=== PATIENT | female | born 1935 | race Caucasian/White ===

== ENCOUNTER → 2022-11-07 14:45 | Outpatient (BNVA) | payer MEDICARE, SELFPAY | PROVIDERS: Visit Provider Podiatrist Foot & Ankle Surgery | DX: M77.41 Metatarsalgia, right foot (principal); M20.11 Hallux valgus (acquired), right foot; M24.571 Contracture, right ankle | CPT/HCPCS: 73630; 99204 ==

== ENCOUNTER → 2022-11-30 13:32 | Outpatient (BNVA) | payer MEDICARE, SELFPAY | PROVIDERS: Visit Provider Nurse Practitioner Family | DX: M17.0 Bilateral primary osteoarthritis of knee (principal); Z46.89 Encounter for fitting and adjustment of other specified devices | CPT/HCPCS: 73560; 73565; 97760; 99203; L1812 ==

== ENCOUNTER 2022-11-30 15:16 | Outpatient (CLI) | payer MEDICARE, BC, SELFPAY | END 2022-11-30 15:17 | disposition home or self-care (01) | LOC: SPT 15:17 | PROVIDERS: Visit Provider Nurse Practitioner Family | DX: Z46.89 Encounter for fitting and adjustment of other specified devices (principal); M25.562 Pain in left knee; M17.0 Bilateral primary osteoarthritis of knee | CPT/HCPCS: 97760; 99203; L1812 ==

== ENCOUNTER → 2024-12-13 11:06 | Outpatient (BNVA) | payer MEDICARE, SELFPAY | PROVIDERS: Visit Provider Dermatology | DX: R59.0 Localized enlarged lymph nodes (principal); L82.1 Other seborrheic keratosis; D48.5 Neoplasm of uncertain behavior of skin | CPT/HCPCS: 11102; 99204 ==

== ENCOUNTER 2025-01-03 09:33 | Outpatient (CLI) | payer MEDICARE, SELFPAY ==
--- NOTE | 2025-01-03 09:41 | CTR_ITS ---
PROCEDURE INFORMATION: Exam: CT Neck With Contrast Exam date and time: 01/03/2025 10:51 AM Age: 89 years old Clinical indication: Condition or disease; Left mandible area mass, squamous cell carcinoma x 1 month TECHNIQUE: Imaging protocol: Computed tomography of the neck with contrast. Radiation optimization: All CT scans at this facility use at least one of these dose optimization techniques: automated exposure control; mA and/or kV adjustment per patient size (includes targeted exams where dose is matched to clinical indication); or iterative reconstruction. Contrast material: OMNI 350; Contrast volume: 100 ml; Contrast route: INTRAVENOUS (IV); COMPARISON: No relevant prior studies available. RADIATION DOSE METRICS: Total DLP (mGy-cm): 228.68 FINDINGS: Salivary glands: Parotid and submandibular salivary glands appear unremarkable. Teeth: Dental hardware is seen with secondary streak artifact. Pharynx: Parapharyngeal soft tissues appear unremarkable. No significant tonsillar enlargement/abscess. Larynx: Paralaryngeal soft tissues appear unremarkable. Normal epiglottis. Thyroid: Small subcentimeter hypodense nodule right lobe thyroid gland noted is incidentally. Trachea: Visualized trachea is unremarkable. Lungs: Unremarkable as visualized. Lymph nodes: Small nonspecific cervical lymph nodes suggested, without significant lymph node enlargement to indicate significant lymphadenopathy. Vasculature: Mild carotid vascular calcification at the carotid bulb/bifurcation. Bones/joints: Spondylotic or degenerative change cervical spine most severe C5-C6 level. No fracture or acute osseous abnormality. No bone lesion or destruction, particularly underlying left mandible. Soft tissues: A protruding soft tissue mass is seen about the soft tissues of the anterolateral left facial region adjacent to the left mandible. This measures approximately 3 x 2.5 x 2 cm in size. Some associated areas of small air density are seen toward the more superficial portion of the mass. This may be related to postsurgical change or post biopsy appearance and correlate clinically. This appears to involve superficial and deep subcutaneous soft tissues as well as skin surface. CT/CT neck w con* [id number] IMPRESSION: 1. A protruding soft tissue mass is seen about the soft tissues of the anterolateral left facial region adjacent to the left mandible involving superficial and deep subcutaneous soft tissues and skin. This measures approximately 3 x 2.5 x 2 cm. This is felt to correlate with the patient's known history of squamous cell carcinoma. Some associated areas of small air density are seen more superficially within the soft tissue mass, likely postsurgical change or post biopsy appearance, for clinical correlation. 2. No underlying osseous abnormality of the mandible and no significant cervical lymphadenopathy. 3. Incidental small subcentimeter hypodense nodule right lobe thyroid gland. This can be further evaluated with follow-up nonemergent thyroid ultrasound COMMENTS: Consistent with the [employer]'s Incidental Findings Committee white paper (J Am Luis Radiol 2015): In patients aged 35 years and older with an incidental thyroid nodule equal to or greater than 1.[address], MRI or extrathyroidal US, further evaluation with dedicated thyroid US is recommended for patients with normal life expectancy and without comorbidities. For smaller nodules without suspicious features, no further evaluation or follow up is recommended.
[2025-01-03] MEDS: iohexol 350 mg/mL 500 mL Btl (per mL) IV (10:43)
[2025-01-03 10:48] LABS: Blood Urea Nitrogen 11 mg/dL (8-23)
== END 2025-01-03 09:34 | disposition home or self-care (01) ==
PROVIDERS: Visit Provider Specialist
DX: C44.92 Squamous cell carcinoma of skin, unspecified (principal); R22.0 Localized swelling, mass and lump, head
CPT/HCPCS: 70491; 82565; 84520